=== PATIENT | female | born 1975 | race Caucasian/White ===

== ENCOUNTER → 2020-06-10 07:50 | Outpatient (CLI) | payer OTHER, SELFPAY ==
--- NOTE | ~2020-06-10 | MR_ITS ---
EXAMINATION: MR foot LT wo con DATE: 06/10/2020 08:34 INDICATION: Medial hindfoot pain. Posterior tibial tendinitis. TECHNIQUE: Magnetic resonance imaging (MRI) of the left ankle was performed without intravenous contr ast. Sequences included sagittal, coronal, and axial proton-density weighted fast spin echo without a nd with fat saturation. COMPARISON: None. FINDINGS: Medial ankle ligaments: Deep and superficial deltoid ligaments as well as the spring ligament are normal. Lateral ankle ligaments: The anterior and posterior inferior tibiofibular ligaments are normal. The anterior talofibular, calc aneofibular and posterior talofibular ligaments are normal. Tendons: Achilles tendon is normal. The peroneus longus and brevis tendons are normal. The tibialis anterior a nd extensor hallucis longus and extensor digitorum longus tendons are normal. The flexor digitorum lo ngus and flexor hallucis longus tendons are normal. Medial to the neck of the talus there is a small amount of fluid in the tendon sheath surrounding the otherwise normal-appearing tibialis posterior te ndon consistent with mild tenosynovitis. Plantar fascia: Plantar aponeurosis is normal. Bones/other: Bone alignment is normal. No fracture or pathologic marrow replacing process. Osteoarthritis at the n avicular cuneiform joint with prominent subarticular edema at the medial cuneiform. Additional mild o steoarthritis with tiny marginal osteophytes but without degenerative subarticular changes at several of the tarsal metatarsal joints. Fluid: Physiologic amount fluid in the joint spaces. No bursitis or other abnormal fluid collections. IMPRESSION: 1. Mild posterior tibial tenosynovitis but without evident associated tendinopathy or tear. 2. 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 Reviewed, dictated and finalized at location [facility] IMPRESSION: 1. Mild posterior tibial tenosynovitis but without evident associated tendinopa thy or tear. 2. 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
== END ==
PROVIDERS: Visit Provider Podiatrist Foot & Ankle Surgery
DX: M76.822 Posterior tibial tendinitis, left leg (principal); M19.072 Primary osteoarthritis, left ankle and foot
CPT/HCPCS: 73718

== ENCOUNTER → 2021-03-22 03:20 | Outpatient (CLI) | payer BC, SELFPAY ==
[2021-03-23 01:23] LABS: SARS-CoV-2 RNA PCR Negative
== END ==
PROVIDERS: Visit Provider Internal Medicine Gastroenterology
DX: Z01.812 Encounter for preprocedural laboratory examination (principal); Z20.822 Contact with and (suspected) exposure to COVID-19
CPT/HCPCS: C9803; U0003; U0005

== ENCOUNTER 2021-03-25 01:50 | Day surgery (SDC) | payer BC, SELFPAY ==
[2021-03-18 12:02] VITALS: BMI 31.4
--- NOTE | 2021-03-25 07:23 | PM.HPGS ---
History of Present Illness History of Present Illness Consent: Risks, benefits, and alternatives have been discussed and questions answered. Patient agrees to proceed with procedure. Chief complaint: family hx of colon polyps, neoplasm Narrative: Madhavi Avelar is a 46 year old female here for colon cancer screening. She has a family history of Precancerous colon polyps Review of Systems Review of Systems: All systems reviewed & are unremarkable except as noted in HPI and below PMFSH Past Medical History Medical History Anxiety Depression Social History Social History Smoking status: Never smoker Alcohol intake: current Drinks per week: 1 Alcohol use details: BOTTLE WINE Substance use: never Substance use type: does not use Living arrangements: with family Spiritual care concerns: No Meds Home Medications and Allergies Home Medications Medication Instructions Recorded Confirmed Type escitalopram oxalate 5 mg PO DAILY 03/18/21 03/18/21 History Allergies Allergy/AdvReac Type Severity Reaction Status Date / Time codeine AdvReac Mild Nausea and Verified 03/18/21 12:02 Vomiting Exam Resp: Auscultation: clear to auscultation bilaterally Cardio: Rate: regular rate Rhythm: regular rhythm GI: GI Palp: Yes Soft to palpation and No Tenderness to palpation present (GI) Assessment and Plan Assessment and plan (1) Colon cancer screening: Code(s): Z12.11 - Encounter for screening for malignant neoplasm of colon Status: Acute Assessment and Plan: Colonoscopy with possible biopsy or polypectomy or cautery or injection of substances.
[2021-03-25 08:42] VITALS: BP 126/77; PULSE 71; RESP 20; TEMP 36.2; O2SAT 100; BMI 31.4
[2021-03-25] MEDS: LACTATED RINGERS 1,000 ML 150 ML IV CONT (08:54)
--- NOTE | 2021-03-25 09:21 | P.PNAN_ITS ---
Anes - Initial Pre Proc Eval Procedure: Operation Date: 03/25/21 09:30 Proposed Procedures p Screening Colonoscopy - Elliot Santiago MD Date/Time: 03/25/21 09:21 Surgeon: Elliot Santiago MD Pre Op Diagnosis: family hx of colon polyps, neoplasm Patient Data Age: 46 Gender: F Height: 1.7 m Weight: 91.2 kg Last Vital Signs Temp 97.1 F L 03/25/21 08:42 Pulse 71 03/25/21 08:42 Resp 20 03/25/21 08:42 BP 126/77 03/25/21 08:42 Pulse Ox 100 03/25/21 08:42 Allergies Allergy/AdvReac Type Severity Reaction Status Date / Time codeine AdvReac Mild Nausea and Verified 03/18/21 12:02 Vomiting Home Medications Medication Instructions Recorded Confirmed Type escitalopram oxalate 5 mg PO DAILY 03/18/21 03/18/21 History Patient hx anesthesia problems: none Family hx anesthesia problems: none [facility] Past Medical History Medical History (Updated 03/25/21 @ 09:18 by Rolando James MD) Anxiety Depression Social History Social History Smoking status: Never smoker Alcohol intake: current Drinks per week: 1 Alcohol use details: BOTTLE WINE Substance use: never Substance use type: does not use Living arrangements: with family Spiritual care concerns: No Anes - Eval Final PreProcedure Day of Procedure 03/25/21 09:21 Patient weight: obese Heart: regular rate and rhythm Lungs: clear to auscultation Airway: Mallampati scale class II Neurological: alert and oriented Last oral intake: >/= 8 hours ASA classification: II Emergent: no Anesthetic plan: proceed Anesthesia type and monitoring: general GIVS and standard monitoring Informed Consent: The patient's anesthetic plan and its attendant risks and benefits were discussed with the patient/family/POA. Questions were solicited and answers provided to the satisfaction of the patient/family/POA.
[2021-03-25 10:08] VITALS: BP 109/73; PULSE 70; RESP 20; O2SAT 100
[2021-03-25 10:18] VITALS: BP 111/76; PULSE 57; RESP 24; O2SAT 100
[2021-03-25 10:28] VITALS: BP 122/84; PULSE 60; RESP 15; O2SAT 100
== END 2021-03-25 10:45 | disposition home or self-care (01) ==
PROVIDERS: Visit Provider Internal Medicine Gastroenterology
PROC: 0DJD8ZZ Inspection of Lower Intestinal Tract, Via Natural or Artificial Opening Endoscopic (ICD-10-PCS; CPT 45378; principal; 2021-03-25 09:30)
DX: Z12.11 Encounter for screening for malignant neoplasm of colon (principal); D12.2 Benign neoplasm of ascending colon; D12.3 Benign neoplasm of transverse colon; K63.89 Other specified diseases of intestine; Z83.71 Family history of colonic polyps
CPT/HCPCS: 45385; 45384; 45381; 88305; J2001; J2704; J7120

== ENCOUNTER 2022-08-29 00:21 | Day surgery (SDC) | payer BC, SELFPAY ==
[2022-08-12 14:40] VITALS: BMI 29.3
[2022-08-29 09:46] VITALS: BP 112/74; PULSE 85; RESP 18; TEMP 36; O2SAT 100; BMI 28.8
[2022-08-29] MEDS: LACTATED RINGERS 1,000 ML 150 ML IV CONT (10:04)
--- NOTE | 2022-08-29 10:15 | PM.HPGS ---
History of Present Illness History of Present Illness Consent: Risks, benefits, and alternatives have been discussed and questions answered. Patient agrees to proceed with procedure. Chief complaint: melaneosis coli, hx colon polyps Narrative: Madhavi Avelar is a 47 year old female food had 6 adenomatous polyps removed about 2 years ago. Review of Systems Review of Systems: All systems reviewed & are unremarkable except as noted in HPI and below PMFSH Past Medical History Medical History Anxiety Depression Social History Social History Smoking status: Never smoker Alcohol intake: current Drinks per week: 1 Alcohol use details: BOTTLE WINE Substance use: never Substance use type: does not use Living arrangements: with family Spiritual care concerns: No Meds Home Medications and Allergies Home Medications Medication Instructions Recorded Confirmed Type escitalopram oxalate 5 mg tablet 5 mg PO DAILY 03/18/21 08/12/22 History armodafinil 50 mg tablet (Nuvigil) 150 mg PO QAM 08/12/22 History Allergies Allergy/AdvReac Type Severity Reaction Status Date / Time codeine AdvReac Mild Nausea and Verified 08/29/22 09:45 Vomiting Vital Signs Vital Signs - 24 hr 08/29/22 09:46 Temperature 36.0 C L Pulse Rate 85 Respiratory Rate 18 Blood Pressure 112/74 Pulse Oximetry 100 Oxygen Delivery Room Air Exam Const: General: alert Orientation/consciousness: patient oriented x3 Resp: Auscultation: clear to auscultation bilaterally Cardio: Rhythm: regular rhythm GI: GI Palp: Yes Soft to palpation and No Tenderness to palpation present (GI) Neuro: General: patient oriented x3 Assessment and Plan Assessment and plan (1) Colon cancer screening: Code(s): Z12.11 - Encounter for screening for malignant neoplasm of colon Status: Acute Assessment and Plan: Colonoscopy with possible biopsy or polypectomy or cautery or injection of substances.
--- NOTE | 2022-08-29 10:17 | PM.HPGS ---
History of Present Illness History of Present Illness Consent: Risks, benefits, and alternatives have been discussed and questions answered. Patient agrees to proceed with procedure. Chief complaint: melaneosis coli, hx colon polyps Narrative: Madhavi Avelar is a 47 year old female Who had 6 polyps removed about 2 years ago. Review of Systems Review of Systems: All systems reviewed & are unremarkable except as noted in HPI and below PMFSH Past Medical History Medical History Anxiety Depression Social History Social History Smoking status: Never smoker Alcohol intake: current Drinks per week: 1 Alcohol use details: BOTTLE WINE Substance use: never Substance use type: does not use Living arrangements: with family Spiritual care concerns: No Meds Home Medications and Allergies Home Medications Medication Instructions Recorded Confirmed Type escitalopram oxalate 5 mg tablet 5 mg PO DAILY 03/18/21 08/12/22 History armodafinil 50 mg tablet (Nuvigil) 150 mg PO QAM 08/12/22 History Allergies Allergy/AdvReac Type Severity Reaction Status Date / Time codeine AdvReac Mild Nausea and Verified 08/29/22 09:45 Vomiting Vital Signs Vital Signs - 24 hr 08/29/22 09:46 Temperature 36.0 C L Pulse Rate 85 Respiratory Rate 18 Blood Pressure 112/74 Pulse Oximetry 100 Oxygen Delivery Room Air Exam Resp: Auscultation: clear to auscultation bilaterally Cardio: Rate: regular rate Rhythm: regular rhythm GI: GI Palp: Yes Soft to palpation and No Tenderness to palpation present (GI) Assessment and Plan Assessment and plan (1) Colon cancer screening: Code(s): Z12.11 - Encounter for screening for malignant neoplasm of colon Status: Acute Assessment and Plan: Colonoscopy with possible biopsy or polypectomy or cautery or injection of substances.
--- NOTE | 2022-08-29 10:42 | PM.HPGS ---
History of Present Illness History of Present Illness Consent: Risks, benefits, and alternatives have been discussed and questions answered. Patient agrees to proceed with procedure. Chief complaint: melaneosis coli, hx colon polyps Narrative: Madhavi Avelar is a 47 year old female Referred for colon cancer screening. Review of Systems Review of Systems: All systems reviewed & are unremarkable except as noted in HPI and below PMFSH Past Medical History Medical History Anxiety Depression Social History Social History Smoking status: Never smoker Alcohol intake: current Drinks per week: 1 Alcohol use details: BOTTLE WINE Substance use: never Substance use type: does not use Living arrangements: with family Spiritual care concerns: No Meds Home Medications and Allergies Home Medications Medication Instructions Recorded Confirmed Type escitalopram oxalate 5 mg tablet 5 mg PO DAILY 03/18/21 08/12/22 History armodafinil 50 mg tablet (Nuvigil) 150 mg PO QAM 08/12/22 History Allergies Allergy/AdvReac Type Severity Reaction Status Date / Time codeine AdvReac Mild Nausea and Verified 08/29/22 09:45 Vomiting Vital Signs Vital Signs - 24 hr 08/29/22 09:46 Temperature 36.0 C L Pulse Rate 85 Respiratory Rate 18 Blood Pressure 112/74 Pulse Oximetry 100 Oxygen Delivery Room Air Exam Const: General: alert Orientation/consciousness: patient oriented x3 Resp: Auscultation: clear to auscultation bilaterally Cardio: Rhythm: regular rhythm GI: GI Palp: Yes Soft to palpation and No Tenderness to palpation present (GI) Neuro: General: patient oriented x3 Assessment and Plan Assessment and plan (1) Colon cancer screening: Code(s): Z12.11 - Encounter for screening for malignant neoplasm of colon Status: Acute Assessment and Plan: Colonoscopy with possible biopsy or polypectomy or cautery or injection of substances.
--- NOTE | 2022-08-29 10:51 | P.PNAN_ITS ---
Anes - Initial Pre Proc Eval Procedure: Operation Date: 08/29/22 11:00 Proposed Procedures p Colonoscopy - Elliot Santiago MD Date/Time: 08/29/22 10:51 Surgeon: Elliot Santiago MD Pre Op Diagnosis: melaneosis coli, hx colon polyps Patient Data Age: 47 Gender: F Height: 1.7 m Weight: 83.4 kg Last Vital Signs Temp 96.8 F L 08/29/22 09:46 Pulse 85 08/29/22 09:46 Resp 18 08/29/22 09:46 BP 112/74 08/29/22 09:46 Pulse Ox 100 08/29/22 09:46 O2 Del Method Room Air 08/29/22 09:46 Allergies Allergy/AdvReac Type Severity Reaction Status Date / Time codeine AdvReac Mild Nausea and Verified 08/29/22 09:45 Vomiting Home Medications Medication Instructions Recorded Confirmed Type escitalopram oxalate 5 mg tablet 5 mg PO DAILY 03/18/21 08/12/22 History armodafinil 50 mg tablet (Nuvigil) 150 mg PO QAM 08/12/22 History Patient hx anesthesia problems: none Family hx anesthesia problems: none Results Review: All pre-operative results and documents have been reviewed as part of the pre- operative evaluation. COUNT INCLUDES [facility] Past Medical History Medical History Anxiety Depression Social History Social History Smoking status: Never smoker Alcohol intake: current Drinks per week: 1 Alcohol use details: BOTTLE WINE Substance use: never Substance use type: does not use Living arrangements: with family Spiritual care concerns: No Anes - Eval Final PreProcedure Day of Procedure 08/29/22 10:51 Patient weight: normal Heart: regular rate and rhythm Lungs: clear to auscultation Airway: Mallampati scale class II Neurological: alert and oriented Last oral intake: >/= 8 hours ASA classification: II Emergent: no Anesthetic plan: proceed Anesthesia type and monitoring: general GIVS and standard monitoring Results Review: All pre-operative results and documents have been reviewed as part of the pre-o perative evaluation. Informed Consent: The patient's anesthetic plan and its attendant risks and benefits were discussed with the patient/family/POA. Questions were solicited and answers provided to the satisfaction of the patient/family/POA.
[2022-08-29 11:19] VITALS: BP 88/54; PULSE 81; RESP 23; O2SAT 100
[2022-08-29 11:29] VITALS: BP 95/65; PULSE 86; RESP 18; O2SAT 100
[2022-08-29 11:39] VITALS: BP 107/70; PULSE 72; RESP 14; O2SAT 99
== END 2022-08-29 11:50 | disposition home or self-care (01) ==
PROVIDERS: Visit Provider Internal Medicine Gastroenterology
PROC: 0DJD8ZZ Inspection of Lower Intestinal Tract, Via Natural or Artificial Opening Endoscopic (ICD-10-PCS; CPT 45378; principal; 2022-08-29 11:00)
DX: Z12.11 Encounter for screening for malignant neoplasm of colon (principal); K63.89 Other specified diseases of intestine; D12.3 Benign neoplasm of transverse colon; F41.9 Anxiety disorder, unspecified; F32.A Depression, unspecified
CPT/HCPCS: 45388; 88305; J2704; J7120